=== PATIENT | male | born 2000 | race African-American/Black ===

== ENCOUNTER 2023-01-28 14:44 | Emergency (ER) | payer MEDICAID, OTHER | END 2023-01-29 01:38 | disposition left against medical advice (07) | LOC: EDBD 14:44 → ER 14:44 | DX: R53.1 Weakness (principal); R33.9 Retention of urine, unspecified; Z53.21 Procedure and treatment not carried out due to patient leaving prior to being seen by health care provider ==

== ENCOUNTER 2023-02-19 17:58 | Emergency (ER) | payer MEDICAID ==
[~2023-02-19] VITALS: Ht 193 cm; Wt 72.0 kg
[2023-02-19 18:13] VITALS: BP 95/37
[2023-02-19 18:52] LABS: Eosinophils # (auto) 0 10 ^3/uL (0-0.8); Hemoglobin 7.2 g/dL (13.5-17.5); Monocytes # (auto) 0.5 10 ^3/uL (0-1.3); Neutrophils % (auto) 78.1 % (37.0-80.0)
[2023-02-19 18:55] LABS: Basophils # (auto) 0 10 ^3/uL (0-0.2); Basophils % (auto) 0.4 % (0.0-2.0); Eosinophils % (auto) 0.4 % (0.0-7.0); Hematocrit 24.7 % (41.0-53.0); Mean Corpuscular Hemoglobin 19.2 pg (28.0-32.0); Mean Corpuscular Volume 66.2 fL (80.0-100.0); Monocytes % (auto) 4.1 % (0.0-12.0); Red Blood Cells 3.73 10^6/uL (4.5-5.90); Red Cell Distribution Width 19.1 % (11.8-14.3); White Blood Cell 11.5 10^3/uL (4.4-10.8)
[2023-02-19 19:17] LABS: Albumin 1.3 g/dL (3.4-5.0); Calcium 7.7 mg/dL (8.5-10.1); Potassium 4.3 mmol/L (3.5-5.1)
[2023-02-19 19:19] LABS: BUN/Creatinine Ratio 17.3 (10.0-20.0)
[2023-02-19 19:30] LABS: Lactic Acid w/Reflex 2.9 mmol/L (0.4-2.0)
[2023-02-19 19:31] LABS: Bilirubin, Total 0.2 mg/dL (0.2-1.0); Total Protein 7.9 g/dL (6.4-8.2)
[2023-02-19] MEDS ORDERED: SODIUM CHLORIDE 0.9% 1,000 ML IV ONE (20:15)
[2023-02-19] MEDS ORDERED: cefTRIAXone 1GM/50ML D5W 50 ML IV ONE (20:15)
== END 2023-02-20 06:46 | disposition home or self-care (01) ==
LOC: ER 17:58
DX: A41.9 Sepsis, unspecified organism (principal); N39.0 Urinary tract infection, site not specified
CPT/HCPCS: 36415; 80053; 83605; 85025